=== PATIENT | male | born 1980 | race Caucasian/White ===

== ENCOUNTER 2021-09-03 07:21 | Outpatient (REF) | payer OTHER, SELFPAY | END 2021-09-03 07:22 | disposition home or self-care (01) | LOC: HO.LAB 07:21 | PROVIDERS: Visit Provider Internal Medicine | DX: Z20.822 Contact with and (suspected) exposure to COVID-19 (principal) | CPT/HCPCS: C9803; U0003; U0005 ==

== ENCOUNTER 2022-03-10 05:49 | Emergency (ER) | payer OTHER, SELFPAY ==
[2022-03-10 05:58] VITALS: BP 150/90; PULSE 85; RESP 16; TEMP 36.7; O2SAT 97; BMI 45.3
--- NOTE | 2022-03-10 06:08 | PC.NURSE ---
Pt says that he can feel part of a Q-tip stuck in his left ear and feels it is migrating down his ear canal.
--- NOTE | 2022-03-10 06:47 | ED.EAR ---
HPI - Ear Problem General Chief complaint: Ear Problems Stated complaint: end of Q-tip stuck in L ear Time Seen by Provider: 03/10/22 06:11 Source: patient, family (Spouse) and [employer] worker Mode of arrival: ambulatory Limitations: no limitations History of Present Illness HPI Narrative: Evaluation of Q-tip retained in the left ear. Review of Systems Review of Systems: All other systems are reviewed and are negative Constitutional: Reports as per HPI and Reports no additional constitutional complaints Eyes: Reports as per HPI and Reports no additional eye complaints Reports system reviewed and no additional complaints, except as documented Cardiovascular: Reports as per HPI and Reports no additional cardiovascular complaints Respiratory: Reports as per HPI and Reports no additional respiratory complaints Gastrointestinal: Reports as per HPI and Reports no additional gastrointestinal complaints Genitourinary: Reports no additional female genitourinary complaints Musculoskeletal: Reports no additional musculoskeletal complaints Skin/Breast: Reports system reviewed and no additional complaints, except as docu Psychiatric: Reports no additional psychiatric complaints Endocrine: Reports no additional endocrine complaints Hematologic/Lymphatic: Reports no additional hematologic/lymphatic complaints Allergic/Immunologic: Reports no additional allergic/immunologic complaints Reports system reviewed and no additional complaints, except as documented and Reports Abnormal speech present [facility] Social History Social History Advance Directives: No Physical Exam Vital Signs: Vital Signs: Last Vital Signs Temp 98.1 F 03/10/22 05:58 Pulse 85 03/10/22 05:58 Resp 16 03/10/22 05:58 BP 150/90 H 03/10/22 05:58 Pulse Ox 97 03/10/22 05:58 BMI result Body Mass Index 45.3 Vital signs have been reviewed as appeared to be correct. Blood pressure normal. Heart rate normal. Respiration rate normal. Temperature normal. Oxygen saturation normal. Appearance: Alert. Oriented X3. No acute distress. Head: Normal external exam. Normocephalic. Atraumatic. No Prater signs noted. No raccoon eyes noted Eyes: PERRLA. EOMI. Conjunctiva and sclera normal. Eyelids normal. ENT: A piece of white Rowan retained in the left ear canal, TM's Normal. Pharynx normal. Uvula midline. Moist mucous membranes. No trismus noted. No drooling noted. No muffled voice noted. Neck: Normal inspection. Neck supple. FROM. No adenopathy. Thyroid Normal. No meningeal signs. No neck mass noted. CVS: Normal heart rate and rhythm. Heart sound normal. No murmurs noted. Pulses normal throughout. Respiratory: No respiratory distress. Painless inspiration. Breath sounds normal. No wheezes/rales/rhonchi noted. Chest nontender. No accessory muscle usage noted or decreased air movement noted. Abdomen: Soft and nontender. Bowel sounds normal in all 4 quadrants. No distention noted. No organomegaly noted. No visible injury noted. Back: No CVA tenderness. Full range of motion noted. Skin: Skin warm and dry. Normal skin color. Normal skin turgor. No rashes/lesions/lacerations noted. Extremities: No lower extremity edema. Extremities exhibit normal range of motion. Extremities nontender. Neuro: Oriented X 3. Cranial nerve exam: II-XII are grossly intact No motor deficit. No sensory deficit. Reflexes normal. Course Course Course Narrative: Left ear foreign body removal. Procedures Ear Wax Removal Left Ear: Results: Re-examined: other (The condom piece of the Q-tip) TM Examination: TM(s) intact, normal appearance Ear Canal Exam: atraumatic Patient Tolerated Procedure: well Complications: no problems Technique: ear canal curetted (Using alligator forceps.) Discharge Plan Discharge Clinical Impression: Acute foreign body of left ear Patient Disposition: Home, Self-Care Instructions: Ear Foreign Body (ED) Referrals: Physician,Unknown J [Primary Care Provider] -
== END 2022-03-10 06:51 | disposition home or self-care (01) ==
PROVIDERS: Emergency Provider Emergency Medicine
DX: T16.2XXA Foreign body in left ear, initial encounter (principal); X58.XXXA Exposure to other specified factors, initial encounter; Y93.E8 Activity, other personal hygiene; Y92.012 Bathroom of single-family (private) house as the place of occurrence of the external cause; Y99.9 Unspecified external cause status
CPT/HCPCS: 69200; 99282; 99284